=== PATIENT | female | born 1980 | race Two or more races ===

== ENCOUNTER 2021-03-24 12:49 | Emergency (ER) | payer BC, OTHER ==
[~2021-03-24] VITALS: Ht 162.6 cm; Wt 70.0 kg
[2021-03-24 12:58] VITALS: BP 193/121
[2021-03-24] MEDS ORDERED: AMLO5TAB4 PO (13:06)
[2021-03-24] MEDS ORDERED: LEVO175T7 PO (13:08)
[2021-03-24] MEDS ORDERED: SUMA100T16 PO (13:08)
[2021-03-24] MEDS ORDERED: CLONIDINE 0.1MG TABLET PO ONE (13:15)
[2021-03-24] MEDS ORDERED: SUMA100T16 MT ×2 (13:18→13:35)
[2021-03-24] MEDS ORDERED: AMOX-494 MT ×2 (13:18→13:35)
[2021-03-24] MEDS ORDERED: NEOM10SO17 LEFT EAR ×2 (13:18→13:35)
[2021-03-24] MEDS ORDERED: LEVO175T7 MT ×2 (13:18→13:35)
[2021-03-24] MEDS ORDERED: AMLO5TAB88 MT ×2 (13:18→13:35)
[2021-03-24] MEDS ORDERED: HYDR25TA MT (15:50)
== END 2021-03-24 14:09 | disposition home or self-care (01) ==
LOC: ER 12:49
DX: H60.92 Unspecified otitis externa, left ear (principal); I10 Essential (primary) hypertension
CPT/HCPCS: 99283

== ENCOUNTER 2021-04-21 16:09 | Emergency (ER) | payer BC, OTHER ==
[~2021-04-21] VITALS: Ht 165.1 cm; Wt 81.0 kg
[~2021-04-21 16:09] MED LIST: AMLO5TAB4 PO; AMLO5TAB88 MT; AMOX-494 MT; HYDR25TA MT; LEVO175T7 MT; LEVO175T7 PO; NEOM10SO17 LEFT EAR; SUMA100T16 MT; SUMA100T16 PO
[2021-04-21 16:14] VITALS: BP 158/96
[2021-04-21] MEDS ORDERED: OXYMETAZOLINE HCL NASAL SPRAY 15ML RIGHTNSTRL STA (16:30)
[2021-04-21] MEDS ORDERED: VISCOUS LIDOCAINE 2% 15 ML UDC MM STA (16:32)
[2021-04-21] MEDS ORDERED: DESMOPRESSIN ACETATE 4MCG/ML AMP IV ONE (16:45)
[2021-04-21] MEDS ORDERED: DESMOPRESSIN ACETATE IV NR (17:15)
[2021-04-21] MEDS ORDERED: SODIUM CHLORIDE 0.9% IV NR (17:15)
[2021-04-21] MEDS ORDERED: SILVER NITRATE APPLICATOR STICK TOP ONE (17:45)
[2021-04-21 18:10] LABS: BASOPHILS % 1.2 % (0.0-2.0); EOSINOPHILS % 1.5 % (0.0-5.0); HEMATOCRIT. 37.8 % (36.0-48.0); HEMOGLOBIN. 12.9 g/dL (12.0-16.0); LYMPHOCYTES % 24.7 % (20.0-50.0); MEAN CORPUSCULAR HEMOGLOBIN 31.1 pg (28.0-32.0); MEAN PLATELET VOLUME 8.6 fl (7.4-10.4); MONOCYTES % 6.3 % (2.0-8.0); NEUTROPHILS % 66.3 % (40.0-76.0); PLATELET 185 x1000/uL (130-400); RED BLOOD CELL COUNT 4.15 mill/uL (4.2-5.4); RED CELL DISTRIBUTION WIDTH 14.3 % (11.6-14.6)
[2021-04-21 18:15] LABS: CHLORIDE 105 mEq/L (98-107); HCG SCREEN NEGATIVE
[2021-04-21 18:20] LABS: PARTIAL THROMBOPLASTIN TIME 30.2 sec (23.4-31.0); PROTHROMBIN TIME 10.9 sec (9.6-11.0)
== END 2021-04-21 19:36 | disposition home or self-care (01) ==
LOC: ER 16:09
DX: R04.0 Epistaxis (principal); D68.0 Von Willebrand disease; E03.9 Hypothyroidism, unspecified; Z79.899 Other long term (current) drug therapy; I10 Essential (primary) hypertension
CPT/HCPCS: 30901; 36415; 80053; 84703; 85025; 85610; 85730; 96365; 99284; J2597

== ENCOUNTER 2021-06-08 15:15 | Emergency (ER) | payer BC ==
[~2021-06-08] VITALS: Ht 167.6 cm; Wt 84.0 kg
[2021-06-08 15:51] VITALS: BP 150/97
[2021-06-08] MEDS ORDERED: LEVO175T7 PO (16:00)
[2021-06-08] MEDS ORDERED: HYDR25TA MT (16:00)
[2021-06-08] MEDS ORDERED: AMLO5TAB88 MT (16:00)
== END 2021-06-08 16:20 | disposition home or self-care (01) ==
LOC: ER 15:26
DX: Z76.0 Encounter for issue of repeat prescription (principal); I10 Essential (primary) hypertension; Z86.39 Personal history of other endocrine, nutritional and metabolic disease; Z79.899 Other long term (current) drug therapy; Z98.890 Other specified postprocedural states
CPT/HCPCS: 99283

== ENCOUNTER 2021-06-30 13:12 | Emergency (ER) | payer BC ==
[~2021-06-30] VITALS: Ht 167.6 cm; Wt 88.3 kg
[2021-06-30 15:00] LABS: BASOPHILS % 0.8 % (0.0-2.0); EOSINOPHILS % 0.8 % (0.0-5.0); HEMATOCRIT. 34.2 % (36.0-48.0); HEMOGLOBIN. 11.9 g/dL (12.0-16.0); LYMPHOCYTES % 25.8 % (20.0-50.0); MEAN CORPUSCULAR VOLUME 94.4 fL (81.0-99.0); MEAN PLATELET VOLUME 8.1 fl (7.4-10.4); MONOCYTES % 7.2 % (2.0-8.0); NEUTROPHILS % 65.4 % (40.0-76.0); PLATELET 174 x1000/uL (130-400); RED BLOOD CELL COUNT 3.62 mill/uL (4.2-5.4)
[2021-06-30 15:07] LABS: CHLORIDE 106 mEq/L (98-107)
[2021-06-30 15:10] LABS: INR 1.1; PARTIAL THROMBOPLASTIN TIME 30.1 sec (23.4-31.0); PROTHROMBIN TIME 11.5 sec (9.6-11.0)
[2021-06-30 15:11] LABS: ETHANOL BLOOD < 10 mg/dL
[2021-06-30 15:12] LABS: HCG SCREEN NEGATIVE
[2021-06-30] MEDS ORDERED: IOHEXOL-350 100 ML BOTTLE ONE (15:23)
[2021-06-30 16:33] LABS: *AMPHETAMINES SCREEN URINE NEGATIVE (NEGATIVE); *BARBITURATES SCREEN URINE NEGATIVE (NEGATIVE); *BENZODIAZEPINES SCREEN URINE NEGATIVE (NEGATIVE); *COCAINE SCREEN URINE NEGATIVE (NEGATIVE); METHADONE URINE SCREEN NEGATIVE (NEGATIVE); OPIATES URINE SCREEN NEGATIVE (NEGATIVE)
[2021-06-30 16:34] LABS: CANNABINOID URINE SCREEN NEGATIVE (NEGATIVE); PHENCYCLIDINE URINE SCREEN NEGATIVE (NEGATIVE)
[2021-06-30 17:30] VITALS: BP 146/92
== END 2021-06-30 18:06 | disposition short-term general hospital (02) ==
LOC: ER 13:33 → CANBEDREQ 20:40
DX: I63.541 Cerebral infarction due to unspecified occlusion or stenosis of right cerebellar artery (principal); R20.0 Anesthesia of skin; I10 Essential (primary) hypertension; D64.9 Anemia, unspecified; M32.9 Systemic lupus erythematosus, unspecified; D68.0 Von Willebrand disease; E89.0 Postprocedural hypothyroidism; Z79.899 Other long term (current) drug therapy; Z98.2 Presence of cerebrospinal fluid drainage device
CPT/HCPCS: 36415; 70450; 70496; 70498; 71045; 80053; 80305; 80320; 84484; 84703; 85025; 85610; 85730; 93005; 99291; Q9967; G0480

== ENCOUNTER 2021-07-15 22:20 | Inpatient (IN) | payer BC, MEDICAID ==
[~2021-07-15] VITALS: Ht 167.6 cm; Wt 84.0 kg
[2021-07-15 23:00] VITALS: BP 154/98
[2021-07-15] MEDS ORDERED: PROCHLORPERAZINE 10MG/2ML VIAL IV PRN (23:30)
[2021-07-15] MEDS ORDERED: HYDRALAZINE 20MG/ML VIAL IV PRN (23:30)
[2021-07-15] MEDS ORDERED: SENNOSIDES/DOCUSATE SOD 8.6/50MG TABLET PO PRN (23:30)
[2021-07-15] MEDS ORDERED: ONDANSETRON HCL 4MG/2ML INJ IV PRN (23:30)
[2021-07-15] MEDS ORDERED: HYDRALAZINE 10 MG in SODIUM CHLORIDE 0.9% 49.5 ML IV PRN (23:45)
[2021-07-16] MEDS: MELATONIN 3MG TABLET PO SCH ×2 (00:30→22:49)
[2021-07-16] MEDS ORDERED: MAGNESIUM/ALUMINUM HYDROXIDE/SIMETHICONE 30ML UDC PO PRN (00:30)
[2021-07-16] MEDS: BUTALBITAL/ACETAMINOPHEN/CAFFEINE 50/325/40MG TABLET PO PRN (00:58)
[2021-07-16] MEDS: LEVOTHYROXINE SODIUM 175MCG TABLET PO SCH (07:13)
[2021-07-16] MEDS: GABAPENTIN 300MG CAPSULE PO SCH ×3 (07:52→21:46)
[2021-07-16] MEDS: PANTOPRAZOLE 40MG DR TABLET PO SCH (07:52)
[2021-07-16 08:00] VITALS: BP 150/93
[2021-07-16] MEDS ORDERED: LISINOPRIL 5MG TABLET PO SCH (09:00)
[2021-07-16] MEDS ORDERED: LEVETIRACETAM 500 MG in SODIUM CHLORIDE 0.9% 100 ML IV SCH (09:00)
[2021-07-16] MEDS ORDERED: LEVETIRACETAM 500MG PREMIX 100 ML IV SCH (09:00)
[2021-07-16] MEDS: ASPIRIN 81MG TABLET PO SCH (10:23)
[2021-07-16] MEDS: DOCUSATE SODIUM 100MG CAPSULE PO SCH ×2 (10:24→17:30)
[2021-07-16] MEDS ORDERED: CLONIDINE 0.1MG TABLET PO PRN (11:45)
[2021-07-16 12:00] VITALS: BP 142/93
[2021-07-16] MEDS: LEVETIRACETAM 500MG TABLET PO SCH ×2 (12:13→21:45)
[2021-07-16] MEDS: ACETAMINOPHEN 325MG TABLET PO PRN (12:17)
[2021-07-16 16:00] VITALS: BP 142/93
[2021-07-16] MEDS ORDERED: NA PHOS,M-B/NA PHOS,DI-BA ENEMA 118ML PR PRN (19:30)
[2021-07-16] MEDS ORDERED: NORTRIPTYLINE HCL 25MG CAPSULE PO SCH (21:00)
[2021-07-16] MEDS: ATORVASTATIN CALCIUM 40MG TABLET PO SCH (21:46)
[2021-07-16] MEDS: SENNOSIDES/DOCUSATE SOD 8.6/50MG TABLET PO SCH (21:47)
[2021-07-16] MEDS: NORTRIPTYLINE HCL 25MG CAPSULE PO SCH (21:47)
[2021-07-16] MEDS: TRAZODONE HCL 50MG TABLET PO SCH (21:47)
[2021-07-17 02:52] VITALS: BP 155/103
[2021-07-17] MEDS: LEVOTHYROXINE SODIUM 175MCG TABLET PO SCH (06:11)
[2021-07-17] MEDS: GABAPENTIN 300MG CAPSULE PO SCH ×3 (06:11→21:34)
[2021-07-17] MEDS: PANTOPRAZOLE 40MG DR TABLET PO SCH (06:11)
[2021-07-17 08:00] VITALS: BP 128/84
[2021-07-17] MEDS: ASPIRIN 81MG TABLET PO SCH (10:10)
[2021-07-17] MEDS: DOCUSATE SODIUM 100MG CAPSULE PO SCH ×2 (10:10→16:26)
[2021-07-17] MEDS: LEVETIRACETAM 500MG TABLET PO SCH ×2 (10:10→21:33)
[2021-07-17 12:00] VITALS: BP 128/86
[2021-07-17] MEDS: AMLODIPINE 10MG TABLET PO SCH (12:30)
[2021-07-17] MEDS: ACETAMINOPHEN 325MG TABLET PO PRN (14:42)
[2021-07-17 16:00] VITALS: BP 138/82
[2021-07-17 20:00] VITALS: BP 134/90
[2021-07-17] MEDS: ATORVASTATIN CALCIUM 40MG TABLET PO SCH (21:00)
[2021-07-17] MEDS: SENNOSIDES/DOCUSATE SOD 8.6/50MG TABLET PO SCH (21:33)
[2021-07-17] MEDS: TRAZODONE HCL 50MG TABLET PO SCH (21:34)
[2021-07-17] MEDS: MELATONIN 3MG TABLET PO SCH (21:34)
[2021-07-17] MEDS: NORTRIPTYLINE HCL 25MG CAPSULE PO SCH (21:34)
[2021-07-18] MEDS: GABAPENTIN 300MG CAPSULE PO SCH ×3 (07:02→21:02)
[2021-07-18] MEDS: PANTOPRAZOLE 40MG DR TABLET PO SCH (07:02)
[2021-07-18] MEDS: LEVOTHYROXINE SODIUM 175MCG TABLET PO SCH (07:03)
[2021-07-18 08:00] VITALS: BP 118/84
[2021-07-18] MEDS: ASPIRIN 81MG TABLET PO SCH (08:30)
[2021-07-18] MEDS: DOCUSATE SODIUM 100MG CAPSULE PO SCH ×2 (08:30→16:56)
[2021-07-18] MEDS: AMLODIPINE 10MG TABLET PO SCH (08:31)
[2021-07-18] MEDS: ACETAMINOPHEN 325MG TABLET PO PRN (08:31)
[2021-07-18] MEDS: LEVETIRACETAM 500MG TABLET PO SCH ×2 (08:31→21:04)
[2021-07-18 20:00] VITALS: BP 150/90
[2021-07-18] MEDS: TRAZODONE HCL 50MG TABLET PO SCH (21:02)
[2021-07-18] MEDS: NORTRIPTYLINE HCL 25MG CAPSULE PO SCH (21:03)
[2021-07-18] MEDS: ATORVASTATIN CALCIUM 40MG TABLET PO SCH (21:03)
[2021-07-18] MEDS: SENNOSIDES/DOCUSATE SOD 8.6/50MG TABLET PO SCH (21:04)
[2021-07-18] MEDS: MELATONIN 3MG TABLET PO SCH (21:06)
[2021-07-18 21:51] LABS: CLARITY URINE CLEAR (CLEAR); COLOR URINE YELLOW (YELLOW); KETONES URINE NEGATIVE (NEGATIVE); LEUKOCYTE ESTERASE URINE NEGATIVE (NEGATIVE); NITRITE URINE NEGATIVE (NEGATIVE); OCCULT BLOOD URINE NEGATIVE (NEGATIVE); PROTEIN URINE NEGATIVE (NEGATIVE); SPECIFIC GRAVITY URINE 1.008 (1.005-1.030)
[2021-07-19] MEDS: GABAPENTIN 300MG CAPSULE PO SCH ×3 (06:15→21:21)
[2021-07-19] MEDS: LEVOTHYROXINE SODIUM 175MCG TABLET PO SCH (06:16)
[2021-07-19] MEDS: PANTOPRAZOLE 40MG DR TABLET PO SCH (06:16)
[2021-07-19 07:02] LABS: HEMATOCRIT. 26.7 % (36.0-48.0); HEMOGLOBIN. 9.5 g/dL (12.0-16.0); MEAN CORPUSCULAR HEMOGLOBIN 32.4 pg (28.0-32.0); MEAN CORPUSCULAR VOLUME 90.9 fL (81.0-99.0); MEAN PLATELET VOLUME 7.3 fl (7.4-10.4); MONOCYTES % 7.8 % (2.0-8.0); NEUTROPHILS % 67.2 % (40.0-76.0); PLATELET 259 x1000/uL (130-400); RED BLOOD CELL COUNT 2.94 mill/uL (4.2-5.4); RED CELL DISTRIBUTION WIDTH 13.1 % (11.6-14.6)
[2021-07-19 08:00] VITALS: BP 136/87
[2021-07-19 08:16] LABS: CHLORIDE 109 mEq/L (98-107)
[2021-07-19] MEDS: AMLODIPINE 10MG TABLET PO SCH (09:19)
[2021-07-19] MEDS: LEVETIRACETAM 500MG TABLET PO SCH ×2 (09:19→21:22)
[2021-07-19] MEDS: DOCUSATE SODIUM 100MG CAPSULE PO SCH ×2 (09:19→16:38)
[2021-07-19] MEDS: ASPIRIN 81MG TABLET PO SCH (09:19)
[2021-07-19 20:00] VITALS: BP 154/98
[2021-07-19] MEDS: MELATONIN 3MG TABLET PO SCH (21:00)
[2021-07-19] MEDS: ATORVASTATIN CALCIUM 40MG TABLET PO SCH (21:22)
[2021-07-19] MEDS: TRAZODONE HCL 50MG TABLET PO SCH (21:22)
[2021-07-19] MEDS: NORTRIPTYLINE HCL 25MG CAPSULE PO SCH (21:23)
[2021-07-19] MEDS: SENNOSIDES/DOCUSATE SOD 8.6/50MG TABLET PO SCH (21:23)
[2021-07-20] MEDS: LEVOTHYROXINE SODIUM 175MCG TABLET PO SCH (06:02)
[2021-07-20] MEDS: GABAPENTIN 300MG CAPSULE PO SCH ×3 (06:34→21:14)
[2021-07-20] MEDS: TRAMADOL 50MG TABLET PO PRN (06:34)
[2021-07-20] MEDS: PANTOPRAZOLE 40MG DR TABLET PO SCH (06:34)
[2021-07-20 08:00] VITALS: BP 134/83
[2021-07-20] MEDS: ASPIRIN 81MG TABLET PO SCH (09:32)
[2021-07-20] MEDS: LEVETIRACETAM 500MG TABLET PO SCH ×2 (09:32→21:14)
[2021-07-20] MEDS: DOCUSATE SODIUM 100MG CAPSULE PO SCH ×2 (09:32→17:33)
[2021-07-20] MEDS: AMLODIPINE 10MG TABLET PO SCH (09:36)
[2021-07-20] MEDS ORDERED: NALOXONE HCL 0.4MG/ML VIAL IV PRN (16:30)
[2021-07-20 20:00] VITALS: BP 142/104
[2021-07-20] MEDS: TRAZODONE HCL 50MG TABLET PO SCH (21:13)
[2021-07-20] MEDS: MELATONIN 3MG TABLET PO SCH (21:14)
[2021-07-20] MEDS: SENNOSIDES/DOCUSATE SOD 8.6/50MG TABLET PO SCH (21:14)
[2021-07-20] MEDS: NORTRIPTYLINE HCL 25MG CAPSULE PO SCH (21:15)
[2021-07-20] MEDS: ATORVASTATIN CALCIUM 40MG TABLET PO SCH (21:15)
[2021-07-21] MEDS: LEVOTHYROXINE SODIUM 175MCG TABLET PO SCH (06:14)
[2021-07-21] MEDS: GABAPENTIN 300MG CAPSULE PO SCH ×3 (06:48→21:26)
[2021-07-21] MEDS: FAMOTIDINE 20MG TABLET PO SCH ×2 (06:48→16:10)
[2021-07-21 08:00] VITALS: BP 128/51
[2021-07-21] MEDS: ASPIRIN 81MG TABLET PO SCH (09:45)
[2021-07-21] MEDS: DOCUSATE SODIUM 100MG CAPSULE PO SCH ×2 (09:45→16:08)
[2021-07-21] MEDS: LEVETIRACETAM 500MG TABLET PO SCH ×2 (09:45→21:25)
[2021-07-21] MEDS: AMLODIPINE 10MG TABLET PO SCH (09:45)
[2021-07-21 20:00] VITALS: BP 142/96
[2021-07-21] MEDS: TRAMADOL 50MG TABLET PO PRN (20:39)
[2021-07-21] MEDS: SENNOSIDES/DOCUSATE SOD 8.6/50MG TABLET PO SCH (21:25)
[2021-07-21] MEDS: NORTRIPTYLINE HCL 25MG CAPSULE PO SCH (21:25)
[2021-07-21] MEDS: ATORVASTATIN CALCIUM 40MG TABLET PO SCH (21:25)
[2021-07-21] MEDS: TRAZODONE HCL 50MG TABLET PO SCH (21:25)
[2021-07-21] MEDS: MELATONIN 3MG TABLET PO SCH (21:26)
[2021-07-22] MEDS: GABAPENTIN 300MG CAPSULE PO SCH ×3 (06:29→21:49)
[2021-07-22] MEDS: FAMOTIDINE 20MG TABLET PO SCH ×2 (06:29→16:37)
[2021-07-22] MEDS: LEVOTHYROXINE SODIUM 175MCG TABLET PO SCH (06:29)
[2021-07-22 08:00] VITALS: BP 130/88
[2021-07-22] MEDS: LEVETIRACETAM 500MG TABLET PO SCH ×2 (09:35→21:51)
[2021-07-22] MEDS: DOCUSATE SODIUM 100MG CAPSULE PO SCH ×2 (09:35→16:37)
[2021-07-22] MEDS: AMLODIPINE 10MG TABLET PO SCH (09:36)
[2021-07-22] MEDS: ASPIRIN 81MG TABLET PO SCH (09:36)
[2021-07-22 20:00] VITALS: BP 123/87
[2021-07-22] MEDS: MELATONIN 3MG TABLET PO SCH (21:00)
[2021-07-22] MEDS: NORTRIPTYLINE HCL 25MG CAPSULE PO SCH (21:49)
[2021-07-22] MEDS: TRAZODONE HCL 50MG TABLET PO SCH (21:51)
[2021-07-22] MEDS: SENNOSIDES/DOCUSATE SOD 8.6/50MG TABLET PO SCH (22:16)
[2021-07-22] MEDS: ATORVASTATIN CALCIUM 40MG TABLET PO SCH (22:16)
[2021-07-23] MEDS: FAMOTIDINE 20MG TABLET PO SCH ×2 (07:28→17:24)
[2021-07-23] MEDS: LEVOTHYROXINE SODIUM 175MCG TABLET PO SCH ×2 (07:28→21:42)
[2021-07-23] MEDS: GABAPENTIN 300MG CAPSULE PO SCH ×3 (07:28→21:33)
[2021-07-23] MEDS: DOCUSATE SODIUM 100MG CAPSULE PO SCH ×2 (09:18→17:24)
[2021-07-23] MEDS: ASPIRIN 81MG TABLET PO SCH (09:18)
[2021-07-23] MEDS: AMLODIPINE 10MG TABLET PO SCH (09:19)
[2021-07-23] MEDS: LEVETIRACETAM 500MG TABLET PO SCH ×2 (09:21→21:39)
[2021-07-23] MEDS: TRAMADOL 50MG TABLET PO PRN (12:03)
[2021-07-23 20:00] VITALS: BP 124/86
[2021-07-23] MEDS: TRAZODONE HCL 50MG TABLET PO SCH (21:38)
[2021-07-23] MEDS: NORTRIPTYLINE HCL 25MG CAPSULE PO SCH (21:39)
[2021-07-23] MEDS: ATORVASTATIN CALCIUM 40MG TABLET PO SCH (21:39)
[2021-07-23] MEDS: SENNOSIDES/DOCUSATE SOD 8.6/50MG TABLET PO SCH (21:39)
[2021-07-23] MEDS: MELATONIN 3MG TABLET PO SCH (21:44)
[2021-07-24] MEDS: FAMOTIDINE 20MG TABLET PO SCH ×2 (06:30→17:27)
[2021-07-24] MEDS: GABAPENTIN 300MG CAPSULE PO SCH ×3 (06:34→21:54)
[2021-07-24] MEDS: LEVOTHYROXINE SODIUM 175MCG TABLET PO SCH (07:00)
[2021-07-24 08:00] VITALS: BP 110/68
[2021-07-24] MEDS: DOCUSATE SODIUM 100MG CAPSULE PO SCH ×2 (09:00→17:27)
[2021-07-24] MEDS: AMLODIPINE 10MG TABLET PO SCH (11:27)
[2021-07-24] MEDS: ASPIRIN 81MG TABLET PO SCH (11:27)
[2021-07-24] MEDS: LEVETIRACETAM 500MG TABLET PO SCH ×2 (11:27→21:52)
[2021-07-24] MEDS: TRAMADOL 50MG TABLET PO PRN (19:11)
[2021-07-24] MEDS: TRAZODONE HCL 50MG TABLET PO SCH (21:52)
[2021-07-24] MEDS: SENNOSIDES/DOCUSATE SOD 8.6/50MG TABLET PO SCH (21:52)
[2021-07-24] MEDS: ATORVASTATIN CALCIUM 40MG TABLET PO SCH (21:52)
[2021-07-24] MEDS: NORTRIPTYLINE HCL 25MG CAPSULE PO SCH (21:52)
[2021-07-24] MEDS: MELATONIN 3MG TABLET PO SCH (21:53)
[2021-07-25] MEDS: LEVOTHYROXINE SODIUM 175MCG TABLET PO SCH (06:44)
[2021-07-25] MEDS: GABAPENTIN 300MG CAPSULE PO SCH ×3 (06:47→21:32)
[2021-07-25] MEDS: FAMOTIDINE 20MG TABLET PO SCH ×2 (06:47→16:17)
[2021-07-25 08:00] VITALS: BP 129/93
[2021-07-25] MEDS: ASPIRIN 81MG TABLET PO SCH (08:59)
[2021-07-25] MEDS: DOCUSATE SODIUM 100MG CAPSULE PO SCH ×2 (08:59→16:17)
[2021-07-25] MEDS: LEVETIRACETAM 500MG TABLET PO SCH ×2 (08:59→21:31)
[2021-07-25] MEDS: AMLODIPINE 10MG TABLET PO SCH (09:02)
[2021-07-25] MEDS ORDERED: NALOXONE HCL 0.4MG/ML VIAL IV PRN (17:00)
[2021-07-25] MEDS: MELATONIN 3MG TABLET PO SCH (21:00)
[2021-07-25] MEDS: ATORVASTATIN CALCIUM 40MG TABLET PO SCH (21:31)
[2021-07-25] MEDS: TRAZODONE HCL 50MG TABLET PO SCH (21:32)
[2021-07-25] MEDS: SENNOSIDES/DOCUSATE SOD 8.6/50MG TABLET PO SCH (21:32)
[2021-07-25] MEDS: NORTRIPTYLINE HCL 25MG CAPSULE PO SCH (21:35)
[2021-07-26] MEDS: LEVOTHYROXINE SODIUM 175MCG TABLET PO SCH (06:42)
[2021-07-26] MEDS: GABAPENTIN 300MG CAPSULE PO SCH ×3 (06:42→21:15)
[2021-07-26] MEDS: FAMOTIDINE 20MG TABLET PO SCH ×2 (06:42→17:00)
[2021-07-26 08:00] VITALS: BP 112/66
[2021-07-26] MEDS: ASPIRIN 81MG TABLET PO SCH (08:18)
[2021-07-26] MEDS: LEVETIRACETAM 500MG TABLET PO SCH ×2 (08:19→21:13)
[2021-07-26] MEDS: AMLODIPINE 10MG TABLET PO SCH (08:19)
[2021-07-26] MEDS: DOCUSATE SODIUM 100MG CAPSULE PO SCH ×2 (08:20→17:00)
[2021-07-26] MEDS: TRAMADOL 50MG TABLET PO PRN (15:54)
[2021-07-26] MEDS ORDERED: DIPHENHYDRAMINE 50MG CAPSULE PO PRN (17:30)
[2021-07-26] MEDS ORDERED: HYDROCORTISONE 1% CREAM 30GM TOP PRN (18:00)
[2021-07-26 20:00] VITALS: BP 128/83
[2021-07-26] MEDS: SENNOSIDES/DOCUSATE SOD 8.6/50MG TABLET PO SCH (21:00)
[2021-07-26] MEDS: NORTRIPTYLINE HCL 25MG CAPSULE PO SCH (21:13)
[2021-07-26] MEDS: TRAZODONE HCL 50MG TABLET PO SCH (21:13)
[2021-07-26] MEDS: MELATONIN 3MG TABLET PO SCH (21:14)
[2021-07-26] MEDS: ATORVASTATIN CALCIUM 40MG TABLET PO SCH (21:15)
[2021-07-27] MEDS: LEVOTHYROXINE SODIUM 175MCG TABLET PO SCH (06:44)
[2021-07-27] MEDS: FAMOTIDINE 20MG TABLET PO SCH ×2 (06:44→16:50)
[2021-07-27] MEDS: GABAPENTIN 300MG CAPSULE PO SCH ×3 (06:44→20:26)
[2021-07-27 08:00] VITALS: BP 118/72
[2021-07-27] MEDS: ASPIRIN 81MG TABLET PO SCH (08:44)
[2021-07-27] MEDS: LEVETIRACETAM 500MG TABLET PO SCH ×2 (08:44→20:25)
[2021-07-27] MEDS: DOCUSATE SODIUM 100MG CAPSULE PO SCH ×2 (08:44→16:50)
[2021-07-27] MEDS: AMLODIPINE 10MG TABLET PO SCH (08:52)
[2021-07-27 20:00] VITALS: BP 118/73
[2021-07-27] MEDS: SENNOSIDES/DOCUSATE SOD 8.6/50MG TABLET PO SCH (20:25)
[2021-07-27] MEDS: TRAZODONE HCL 50MG TABLET PO SCH (20:25)
[2021-07-27] MEDS: NORTRIPTYLINE HCL 25MG CAPSULE PO SCH (20:25)
[2021-07-27] MEDS: ATORVASTATIN CALCIUM 40MG TABLET PO SCH (20:26)
[2021-07-27] MEDS: MELATONIN 3MG TABLET PO SCH (20:27)
[2021-07-28] MEDS: LEVOTHYROXINE SODIUM 175MCG TABLET PO SCH (06:38)
[2021-07-28] MEDS: GABAPENTIN 300MG CAPSULE PO SCH ×3 (07:14→21:59)
[2021-07-28] MEDS: FAMOTIDINE 20MG TABLET PO SCH ×2 (07:14→18:07)
[2021-07-28 08:45] VITALS: BP 120/78
[2021-07-28] MEDS: AMLODIPINE 10MG TABLET PO SCH (08:45)
[2021-07-28] MEDS: DOCUSATE SODIUM 100MG CAPSULE PO SCH ×2 (08:45→18:07)
[2021-07-28] MEDS: LEVETIRACETAM 500MG TABLET PO SCH ×2 (08:45→21:56)
[2021-07-28] MEDS: ASPIRIN 81MG TABLET PO SCH (08:45)
[2021-07-28] MEDS: TRAMADOL 50MG TABLET PO PRN (18:09)
[2021-07-28 20:00] VITALS: BP 116/81
[2021-07-28] MEDS: SENNOSIDES/DOCUSATE SOD 8.6/50MG TABLET PO SCH (21:55)
[2021-07-28] MEDS: NORTRIPTYLINE HCL 25MG CAPSULE PO SCH (21:56)
[2021-07-28] MEDS: MELATONIN 3MG TABLET PO SCH (21:57)
[2021-07-28] MEDS: ATORVASTATIN CALCIUM 40MG TABLET PO SCH (21:58)
[2021-07-28] MEDS: TRAZODONE HCL 50MG TABLET PO SCH (21:58)
[2021-07-29] MEDS: LEVOTHYROXINE SODIUM 175MCG TABLET PO SCH (06:02)
[2021-07-29] MEDS: GABAPENTIN 300MG CAPSULE PO SCH ×3 (06:02→20:06)
[2021-07-29] MEDS: FAMOTIDINE 20MG TABLET PO SCH ×2 (06:02→17:49)
[2021-07-29 08:00] VITALS: BP 113/71
[2021-07-29] MEDS: ASPIRIN 81MG TABLET PO SCH (09:04)
[2021-07-29] MEDS: LEVETIRACETAM 500MG TABLET PO SCH ×2 (09:04→20:07)
[2021-07-29] MEDS: AMLODIPINE 10MG TABLET PO SCH (09:04)
[2021-07-29] MEDS: DOCUSATE SODIUM 100MG CAPSULE PO SCH ×2 (09:05→17:49)
[2021-07-29] MEDS: TRAMADOL 50MG TABLET PO PRN ×2 (09:07→15:11)
[2021-07-29] MEDS: BUTALBITAL/ACETAMINOPHEN/CAFFEINE 50/325/40MG TABLET PO PRN ×2 (09:53→19:58)
[2021-07-29] MEDS: ACYCLOVIR 400 MG TABLET PO SCH ×3 (15:11→20:06)
[2021-07-29] MEDS ORDERED: HYDROCODONE/APAP 7.5/325MG 1 TAB TABLET PO PRN (19:45)
[2021-07-29] MEDS: TRAZODONE HCL 50MG TABLET PO SCH (20:06)
[2021-07-29] MEDS: MELATONIN 3MG TABLET PO SCH (20:07)
[2021-07-29] MEDS: NORTRIPTYLINE HCL 25MG CAPSULE PO SCH (20:07)
[2021-07-29] MEDS: SENNOSIDES/DOCUSATE SOD 8.6/50MG TABLET PO SCH (20:07)
[2021-07-29] MEDS: ATORVASTATIN CALCIUM 40MG TABLET PO SCH (20:07)
[2021-07-29] MEDS: BACITRACIN 15GM TUBE TOP SCH (20:08)
[2021-07-29] MEDS ORDERED: BACITRACIN 15GM TUBE TOP SCH (22:00)
[2021-07-30] MEDS: LEVOTHYROXINE SODIUM 175MCG TABLET PO SCH (06:31)
[2021-07-30] MEDS: FAMOTIDINE 20MG TABLET PO SCH ×2 (07:00→17:08)
[2021-07-30] MEDS: ACYCLOVIR 400 MG TABLET PO SCH ×5 (07:00→20:37)
[2021-07-30] MEDS: GABAPENTIN 300MG CAPSULE PO SCH ×3 (07:01→20:34)
[2021-07-30 08:00] VITALS: BP 126/82
[2021-07-30] MEDS: LEVETIRACETAM 500MG TABLET PO SCH ×2 (08:21→20:35)
[2021-07-30] MEDS: ASPIRIN 81MG TABLET PO SCH (08:21)
[2021-07-30] MEDS: DOCUSATE SODIUM 100MG CAPSULE PO SCH ×2 (08:21→17:10)
[2021-07-30] MEDS: AMLODIPINE 10MG TABLET PO SCH (08:26)
[2021-07-30] MEDS: BACITRACIN 15GM TUBE TOP SCH ×2 (08:35→20:37)
[2021-07-30 20:00] VITALS: BP 124/81
[2021-07-30] MEDS: SENNOSIDES/DOCUSATE SOD 8.6/50MG TABLET PO SCH (20:35)
[2021-07-30] MEDS: MELATONIN 3MG TABLET PO SCH (20:35)
[2021-07-30] MEDS: NORTRIPTYLINE HCL 25MG CAPSULE PO SCH (20:36)
[2021-07-30] MEDS: ATORVASTATIN CALCIUM 40MG TABLET PO SCH (20:36)
[2021-07-30] MEDS: TRAZODONE HCL 50MG TABLET PO SCH (20:36)
[2021-07-31] MEDS: LEVOTHYROXINE SODIUM 175MCG TABLET PO SCH (06:31)
[2021-07-31] MEDS: GABAPENTIN 300MG CAPSULE PO SCH ×2 (07:11→13:57)
[2021-07-31] MEDS: FAMOTIDINE 20MG TABLET PO SCH (07:11)
[2021-07-31] MEDS: ACYCLOVIR 400 MG TABLET PO SCH ×3 (07:11→13:57)
[2021-07-31 08:00] VITALS: BP 121/82
[2021-07-31] MEDS: LEVETIRACETAM 500MG TABLET PO SCH (09:48)
[2021-07-31] MEDS: ASPIRIN 81MG TABLET PO SCH (09:48)
[2021-07-31] MEDS: AMLODIPINE 10MG TABLET PO SCH (09:48)
[2021-07-31] MEDS: DOCUSATE SODIUM 100MG CAPSULE PO SCH (09:48)
[2021-07-31 10:51] VITALS: BP 121/82
[2021-07-31] MEDS ORDERED: MELA3TAB71 PO (11:01)
[2021-07-31] MEDS ORDERED: HYDR453.3 TP (11:02)
[2021-07-31] MEDS ORDERED: ACYC200C31 PO (11:08)
[2021-07-31] MEDS ORDERED: GABA300C PO (11:09)
[2021-07-31] MEDS ORDERED: FAMO-135 PO (11:10)
[2021-07-31] MEDS ORDERED: KEPP500 PO (11:11)
[2021-07-31] MEDS ORDERED: DOCU-138 PO (11:12)
[2021-07-31] MEDS ORDERED: SYN175 PO (11:15)
[2021-07-31] MEDS ORDERED: ASPI-1497 PO (11:16)
[2021-07-31] MEDS ORDERED: AMLO10TA80 PO (11:17)
[2021-07-31] MEDS ORDERED: NORT25CA5 PO (11:18)
[2021-07-31] MEDS ORDERED: TRAZ-252 PO (11:18)
[2021-07-31] MEDS ORDERED: ATOR80TA PO (11:19)
== END 2021-07-31 15:10 | disposition home health service (06) | DRG 57 ==
PROVIDERS: ADMIT Psychiatry & Neurology Neurology; ATTEND Hospitalist
DX: I69.354 Hemiplegia and hemiparesis following cerebral infarction affecting left non-dominant side (principal); I67.5 Moyamoya disease; C81.90 Hodgkin lymphoma, unspecified, unspecified site; D68.0 Von Willebrand disease; E03.9 Hypothyroidism, unspecified; E05.00 Thyrotoxicosis with diffuse goiter without thyrotoxic crisis or storm; F39 Unspecified mood [affective] disorder; G93.2 Benign intracranial hypertension; I10 Essential (primary) hypertension; I65.29 Occlusion and stenosis of unspecified carotid artery; G93.89 Other specified disorders of brain; M21.372 Foot drop, left foot; Z82.49 Family history of ischemic heart disease and other diseases of the circulatory system; Z98.2 Presence of cerebrospinal fluid drainage device; H53.002 Unspecified amblyopia, left eye; Z87.898 Personal history of other specified conditions
CPT/HCPCS: 36415; 80053; 81003; 85025; 92523; 92610; 93970; 97110; 97112; 97116; 97162; 97166; 97530; 97535; J1953; Q0163

== ENCOUNTER → 2021-08-10 | Outpatient (CLI) | payer BC, OTHER ==
[~2021-08-10] MED LIST changes: +ACYC200C31 PO; +AMLO10TA80 PO; -AMLO5TAB4 PO; -AMLO5TAB88 MT; -AMOX-494 MT; +ASPI-1497 PO; +ATOR80TA PO; +DOCU-138 PO; +FAMO-135 PO; +GABA300C PO; -HYDR25TA MT; +HYDR453.3 TP; -LEVO175T7 MT; -LEVO175T7 PO; +MELA3TAB71 PO; -NEOM10SO17 LEFT EAR; +NORT25CA5 PO; -SUMA100T16 MT; -SUMA100T16 PO; +SYN175 PO; +TRAZ-252 PO
[2021-08-10 14:46] LABS: BASOPHILS % 0.9 % (0.0-2.0); EOSINOPHILS % 2.4 % (0.0-5.0); HEMATOCRIT. 33.5 % (36.0-48.0); HEMOGLOBIN. 11.6 g/dL (12.0-16.0); LYMPHOCYTES % 26.4 % (20.0-50.0); MEAN CORPUSCULAR HEMOGLOBIN 31.6 pg (28.0-32.0); MEAN CORPUSCULAR VOLUME 91.7 fL (81.0-99.0); MEAN PLATELET VOLUME 7.9 fl (7.4-10.4); MONOCYTES % 6.7 % (2.0-8.0); NEUTROPHILS % 63.6 % (40.0-76.0); PLATELET 156 x1000/uL (130-400); RED BLOOD CELL COUNT 3.66 mill/uL (4.2-5.4); RED CELL DISTRIBUTION WIDTH 13.5 % (11.6-14.6)
[2021-08-10 15:01] LABS: CHLORIDE 105 mEq/L (98-107)
[2021-08-10 15:17] LABS: HDL CHOLESTEROL 60 mg/dL (40-59); LDL CHOLESTEROL 48 mg/dL (5-100); T4 FREE 1.37 ng/dL (0.76-1.46)
== END | disposition home or self-care (01) ==
LOC: LAB 13:52
PROVIDERS: ATTEND Internal Medicine Critical Care Medicine
DX: E88.81 Metabolic syndrome and other insulin resistance (principal); E78.9 Disorder of lipoprotein metabolism, unspecified; E06.9 Thyroiditis, unspecified
CPT/HCPCS: 36415; 80053; 80061; 82306; 84439; 84443; 85025